=== PATIENT | male | born 1970 | race Caucasian/White ===

== ENCOUNTER 2016-11-01 15:34 | Outpatient (CLI) | payer OTHER ==
[2016-01-06 16:07] VITALS: BP 144/81
[2016-11-01 16:16] LABS: eGFR (African) > 60; eGFR (Non-African) > 60
--- NOTE | 2016-11-01 17:10 | Diagnostic Imaging Report ---
[facility] [address] [facility].[address] 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 Lungs are clear without acute infiltrates or pleural effusion. No significant mediastinal or hilar adenopathy visible on the chest film. Impression: No active pulmonary pathology Electronically signed on Nov 01, 2016 4:17:47 PM GENERAL MACHINE OPERATOR by: Tyler PABLO
== END 2016-11-01 15:35 ==
LOC: LAB 15:34
PROVIDERS: ATTEND Family Medicine
DX: Z00.00 Encounter for general adult medical examination without abnormal findings (principal); R59.0 Localized enlarged lymph nodes
CPT/HCPCS: 36415; 71020; 80053; 80061

== ENCOUNTER 2016-11-16 08:48 | Outpatient (CLI) | payer OTHER ==
[2016-01-06 16:07] VITALS: BP 144/81
--- NOTE | 2016-11-16 14:37 | Diagnostic Imaging Report ---
[facility] [address] [facility].[address] 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 Night sweats. Contrast administered: 89 ml of Omnipaque. Technique: CT of the chest is performed in contiguous axial slices during intravenous infusion of contrast. Sagittal and coronal reconstructions are performed by the technologist. Findings: The lungs are free of coalescent infiltrate. There is no pleural effusion or significant pleural thickening. Vascular structures enhance normally. There is no mediastinal or hilar mass or significant adenopathy. Hepatic steatosis is demonstrated on images through the upper abdomen. There are morphologically normal appearing lymph nodes in the axilla bilaterally. Impression: 1. Hepatic steatosis. 2. Shotty axillary adenopathy. Electronically signed on Nov 16, 2016 1:27:08 PM SPRING SALVAGE WORKER by: Jovon PABLO
== END 2016-11-16 08:55 ==
LOC: RAD 08:48
PROVIDERS: ATTEND Family Medicine
DX: R59.0 Localized enlarged lymph nodes (principal)
CPT/HCPCS: 71260; Q9966

== ENCOUNTER 2018-07-04 23:27 | Emergency (ER) | payer OTHER ==
--- NOTE | 2018-07-04 23:56 | ED Physician Documentation ---
General Adult - HISTORIAN Historian: patient - HPI Chief Complaint: General Adult Further Comments: yes (48 year old male patient presents with left lower jaw pain. Patient reports he has a broken tooth, cannot get into his dentist until next week; noticed a "bump" in his left lower jaw last night, worse this morning. Increased pain in left bottom molar. Currently on Diclofenac for pain per Dr Lopez.) - ROS CONST: no problems EYES/ENT: none CVS/RESP: none GI/: none MS/SKIN/LYMPH: none NEURO/PSYCH: denies: headache - PAST HX Past History: hypertension, other (HLD) Allergies/Adverse Reactions: Allergies Allergy/AdvReac Type Severity Reaction Status Date / Time cephalexin monohydrate AdvReac Nausea/Vomi Verified 07/05/18 00:16 [From [employer]] ting Home Medications: Ambulatory Orders Medication Instructions Recorded Clindamycin HCl 300 mg PO QID #40 capsule 07/05/18 - SOCIAL HX Smoking History: non-smoker - FAMILY HX Family History: No - VITAL SIGNS Vital Signs: Vital Signs Temp Pulse Resp BP Pulse Ox 144/81 01/06/16 16:03 - REVIEWED ASSESSMENTS Nursing Assessment Reviewed: Yes Vitals Reviewed: Yes General Adult Physical Exam - PHYSICAL EXAM GENERAL APPEARANCE: mild distress EENT: eye inspection normal, ENT inspection normal, pharynx normal, no signs of dehydration, CIARAN, no nystagmus, TM's nml, other (left bottom back molar broken; left jaw line with edema; hyperthermia) RESPIRATORY: no resp distress, chest non-tender, breath sounds normal CVS: reg rate & rhythm, heart sounds normal, equal pulses, no murmur, no gallop, PMI nml, no JVD, no friction rub, 24 SKIN: normal color, warm/dry, NR, INT, PAL, DR EXTREMITIES: non-tender, normal range of motion, no evidence of injury, no edema, J, SLEEP MEDICINE PHYSICIAN NEURO: oriented X3, CN's nml as tested, motor nml, sensation nml, mood/affect nml Discharge Clincal Impression: Dental abscess Prescriptions: Clindamycin HCl 300 mg PO QID #40 capsule Referrals: Aurea Lopez MD [Primary Care Provider] - 2 Days Additional Instructions: Dental Pain Ibuprofen 800mg every 8 hours x 3 days Continue your diclofenac per prescription Tylenol 650-1000mg every 4 hours as needed for pain, limit your dose to 4G in 24 hours. Over the counter DenTek - follow package directions. Over the counter Orajel as needed for pain See your dentist as soon as possible wind up operator your antibiotic in the morning. Condition: Stable Disposition: 01 HOME, SELF-CARE Decision to Admit: NO Decision Time: 00:23
[2018-07-05] MEDS ORDERED: CLINDAMYCIN HCL 150 MG CAPSULE PO ONE (00:27)
[2018-07-05] MEDS ORDERED: KETOROLAC TROMETHAMINE 60 MG/2 ML VIAL IM ONE (00:31)
[2018-07-05 02:08] VITALS: BP 142/98
== END 2018-07-05 00:40 | disposition home or self-care (01) ==
LOC: ED 23:27
DX: K04.7 Periapical abscess without sinus (principal)
CPT/HCPCS: A9270; J1885; 96372